=== PATIENT | male | born 1985 | race American Indian/Alaskan Native ===

== ENCOUNTER 2019-04-11 16:25 | Emergency (ER) | payer BC ==
[2019-04-11 16:37] VITALS: BP 133/82
--- NOTE | 2019-04-11 16:37 | Event Note ---
ED Screening Note Date of service: 04/11/19 Time: 16:34 ED Screening Note: 33 y o male presents to ED with cellulitis and pain with swelling to right arm This initial assessment/diagnostic orders/clinical plan/treatment(s) is/are subject to change based on patients health status, clinical progression and re- assessment by fellow clinical providers in the ED. Further treatment and workup at subsequent clinical providers discretion. Patient/guardian urged not to elope from the ED as their condition may be serious if not clinically assessed and managed. Initial orders include: [facility] eval Clinda IM pain meds RX- broad spectrum antibio
[2019-04-11] MEDS ORDERED: XYLOCAINE 1% MPF 5 mL INFILTRATI ONE (16:56)
[2019-04-11] MEDS ORDERED: MARCAINE 0.25% INFILTRATI ONE (16:56)
[2019-04-11] MEDS ORDERED: CLEOCIN IM ONE (17:03)
[2019-04-11] MEDS ORDERED: BOOSTRIX IM ONE (17:03)
--- NOTE | 2019-04-11 17:05 | Emergency Department Report ---
- General Chief complaint: Extremity Problem,Nontraumatic Stated complaint: RT ARM PAIN/PRESSURE Time Seen by Provider: 04/11/19 16:33 Source: patient Mode of arrival: Ambulatory Limitations: No Limitations - History of Present Illness Initial comments: Patient is a 33-year-old male presents to emergency room with complaints of right forearm pain, edema, redness that began yesterday. Patient is unsure if he scraped his forearm or got bit by something. He did not feel or see anything bite him. Patient has a abrasion to the right forearm. He is unsure of his last tetanus immunization. He denies any drainage or fever. He denies any past medical history or allergies to medications. - Related Data Previous Rx's Medication Instructions Recorded Last Taken Type Clindamycin [Clindamycin CAP] 450 mg PO TID 7 Days #63 capsule 04/11/19 Unknown Rx Allergies Allergy/AdvReac Type Severity Reaction Status Date / Time No Known Allergies Allergy Unverified 04/11/19 16:29 Abscess Boil HPI - HPI Chief Complaint: Extremity Problem,Nontraumatic Stated Complaint: RT ARM PAIN/PRESSURE Time Seen by Provider: 04/11/19 16:33 Home Medications: Previous Rx's Medication Instructions Recorded Last Taken Type Clindamycin [Clindamycin CAP] 450 mg PO TID 7 Days #63 capsule 04/11/19 Unknown Rx Allergies/Adverse Reactions: Allergies Allergy/AdvReac Type Severity Reaction Status Date / Time No Known Allergies Allergy Unverified 04/11/19 16:29 ED Review of Systems ROS: Stated complaint: RT ARM PAIN/PRESSURE Other details as noted in HPI Comment: All other systems reviewed and negative ED Past Medical Hx - Past Medical History Previous Medical History?: No - Surgical History Past Surgical History?: No - Social History Smoking Status: Current Every Day Smoker Substance Use Type: None - Medications Home Medications: Home Medications Medication Instructions Recorded Confirmed Last Taken Type Clindamycin [Clindamycin CAP] 450 mg PO TID 7 Days #63 capsule 04/11/19 Unknown Rx ED Physical Exam - General Limitations: No Limitations General appearance: alert, in no apparent distress - Head Head exam: Present: atraumatic, normocephalic - Eye Eye exam: Present: normal appearance - ENT ENT exam: Present: mucous membranes moist - Neurological Exam Neurological exam: Present: alert, oriented X3 - Psychiatric Psychiatric exam: Present: normal affect, normal mood - Skin Skin exam: Present: warm, dry, other (small scabbed abrasion present to the right forearm with some induration, no obvious fluctuance, erythema and edema present just below the right wrist fci up the right forearm, 2+ radial pulse, sensation intact ) ED Course Vital Signs 04/11/19 04/11/19 16:33 17:29 Temperature 98.6 F Pulse Rate 67 Respiratory 18 16 Rate Blood Pressure 133/82 O2 Sat by Pulse 97 Oximetry ED Medical Decision Making - Medical Decision Making Patient is a 33-year-old male presents to emergency room with complaints of right forearm pain, edema, redness that began yesterday. Patient is unsure if he scraped his forearm or got bit by something. He did not feel or see anything bite him. Patient has a abrasion to the right forearm. He is unsure of his last tetanus immunization. He denies any drainage or fever. He denies any past medical history or allergies to medications. on exam: small scabbed abrasion present to the right forearm with some induration, no obvious fluctuance, erythema and edema present just below the right wrist fci up the right forearm, 2+ radial pulse, sensation intact. vss. pt given tetanus and clindamycin. no drainable abscess at this time. pt given prescription for clindamycin. advised pt to please take medication as prescribed completion. Keep area clean and dry. Follow up with a primary care doctor in the next 3 days for reevaluation. Return to the emergency room for any new or worsening symptoms including but not limited to increasing pain, increasing redness, increasing swelling, drainage from the site, etc - Differential Diagnosis cellulitis, abscess, spider bite Critical care attestation.: If time is entered above; I have spent that time in minutes in the direct care of this critically ill patient, excluding procedure time. ED Disposition Clinical Impression: Cellulitis Qualifiers: Site of cellulitis: extremity Site of cellulitis of extremity: upper extremity Laterality: right Qualified Code(s): L03.113 - Cellulitis of right upper limb Disposition: TO HOME OR SELFCARE Is pt being admited?: No Does the pt Need Aspirin: No Condition: Stable Instructions: Cellulitis (ED), Diphtheria Tetanus and Pertussis Vaccination (ED) Additional Instructions: Please take medication as prescribed completion. Keep area clean and dry. Follow up with a primary care doctor in the next 3 days for reevaluation. Return to the emergency room for any new or worsening symptoms including but not limited to increasing pain, increasing redness, increasing swelling, drainage from the site, etc Prescriptions: Clindamycin [Clindamycin CAP] 450 mg PO TID 7 Days #63 capsule Referrals: [facility] [Provider Group] - 2-3 Days Time of Disposition: 17:09 Print Language: [place]
== END 2019-04-11 18:40 | disposition home or self-care (01) ==
LOC: ED 16:25
DX: S50.811A Abrasion of right forearm, initial encounter (principal); L03.113 Cellulitis of right upper limb; F17.200 Nicotine dependence, unspecified, uncomplicated; Z79.899 Other long term (current) drug therapy; X58.XXXA Exposure to other specified factors, initial encounter; Y93.89 Activity, other specified; Y92.89 Other specified places as the place of occurrence of the external cause; Y99.8 Other external cause status
CPT/HCPCS: 90471; 90715; 96372; 99282